=== PATIENT | male | born 1975 | race American Indian/Alaskan Native ===

== ENCOUNTER 2017-11-07 11:09 | Emergency (ER) | payer SELFPAY ==
[2017-11-07 13:01] VITALS: BP 139/90
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
== END 2017-11-07 23:06 | disposition left against medical advice (07) ==
LOC: ED 11:09
DX: M25.571 Pain in right ankle and joints of right foot (principal); Z53.21 Procedure and treatment not carried out due to patient leaving prior to being seen by health care provider